=== PATIENT | male | born 1995 | race Caucasian/White ===

== ENCOUNTER 2020-11-11 10:47 | Day surgery (SDC) | payer OTHER ==
[~2020-11-11] VITALS: Ht 180.3 cm; Wt 76.8 kg
[2020-11-11 12:33] VITALS: BP 125/78; PULSE 86; TEMP 99.1
[2020-11-11] MEDS ORDERED: ADDERALL XR25 MG PO (12:58)
[2020-11-11] MEDS ORDERED: CATAPRES 0.1MG0.1 MG PO (12:59)
[2020-11-11 14:20] VITALS: BP 105/66; PULSE 73
--- NOTE | 2020-11-11 14:20 | NUR ---
Troy brought back to [facility] [address] via cart, ambulated to chair without difficulty. Candida at bedside to drive home. IV infusing into forearm without difficulty. Troy denies pain or nausea. Vital signs stable. States he would like a muffin and water. Call [facility] within reach, will continue to monitor.
[2020-11-11 14:35] VITALS: BP 107/74; PULSE 76
--- NOTE | 2020-11-11 14:35 | NUR ---
Paitent tolerating food and drink without difficulty. Will continue to monitor.
[2020-11-11 14:50] VITALS: BP 110/60; PULSE 80
--- NOTE | 2020-11-11 14:50 | NUR ---
Patient states he feels ready to go home. Vital signs stable. IV removed, patient to get dressed at this time. Will monitor.
--- NOTE | 2020-11-11 15:03 | NUR ---
Discharge instructions reviewed with patient and . All questions answered. Patient brought down to lobby via wheel chair to be driven home by .
[2020-11-11 15:07] VITALS: BP 1065/66; PULSE 73
== END 2020-11-11 15:03 | disposition home or self-care (01) ==
LOC: SDCO 10:47
DX: K63.5 Polyp of colon (principal); K92.1 Melena; K64.0 First degree hemorrhoids; K62.89 Other specified diseases of anus and rectum; K74.60 Unspecified cirrhosis of liver; D50.0 Iron deficiency anemia secondary to blood loss (chronic); K57.30 Diverticulosis of large intestine without perforation or abscess without bleeding; K64.2 Third degree hemorrhoids; Z86.010 Personal history of colon polyps; F90.9 Attention-deficit hyperactivity disorder, unspecified type
CPT/HCPCS: J2704; J7030